=== PATIENT | female | born 1975 | race Caucasian/White ===

== ENCOUNTER 2020-06-20 10:53 | Emergency (ER) | payer MEDICARE, OTHER ==
[2020-06-20] MEDS ORDERED: diazePAM 2 MG TAB PO STA ×2 (11:17→13:17)
[2020-06-20] MEDS ORDERED: KETOROLAC 15 MG/ML 1 ML VIAL IM STA (11:17)
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
--- NOTE | 2020-06-20 12:29 | XR ---
EXAMINATION TYPE: XR sacrum coccyx DATE OF EXAM: 06/20/2020 COMPARISON: NONE HISTORY: Pain Three views are submitted. Sacrum is intact. SI joints are symmetric. Coccyx appears to be intact. Visualized pelvic structures intact. IMPRESSION: 1. No acute fracture.
--- NOTE | 2020-06-20 12:30 | XR ---
EXAM TYPE: LUMBAR SPINE X RAY SERIES COMPARISON: NONE HISTORY: Pain TECHNIQUE: 3 views are submitted. FINDINGS: Alignment is anatomic. The pedicles are intact. The transverse processes are intact. There is hype rtrophic and degenerative change of the spine most marked at L4-5 and L5-S1.. Surgical clips in the right upper quadrant. Facet arthropathy L4-5 and L5-S1. IMPRESSION: 1. Multilevel degenerative disc disease.
--- NOTE | 2020-06-20 12:31 | XR ---
EXAMINATION TYPE: XR thoracic spine complete DATE OF EXAM: 06/20/2020 COMPARISON: NONE HISTORY: Pain TECHNIQUE: 3 views submitted FINDINGS: Alignment is anatomic. There is no compression deformities. Multilevel hypertrophic and degenerative changes. Surgical clips in the right upper quadrant. IMPRESSION: 1. Multilevel degenerative disc disease
[2020-06-20] MEDS ORDERED: HYDROmorphone 0.5 MG/0.5 ML SYRINGE IM STA (12:40)
[2020-06-20 12:54] VITALS: RESP 12
[2020-06-20] MEDS ORDERED: diazePAM 5 MG TAB PO STA (13:17)
[2020-06-20 13:53] VITALS: BP 110/69; PULSE 76; TEMP 98.1
== END 2020-06-20 13:57 | disposition home or self-care (01) ==
LOC: EC 10:53
DX: M62.838 Other muscle spasm (principal); Z88.0 Allergy status to penicillin; Z91.018 Allergy to other foods; M51.36 Other intervertebral disc degeneration, lumbar region
CPT/HCPCS: 72072; 72100; 72220; 99284; 96372 ×2; J1885; J1170

== ENCOUNTER 2020-07-11 19:34 | Emergency (ER) | payer MEDICARE, OTHER ==
[2020-07-11 19:46] VITALS: RESP 18; TEMP 98.4
[2020-07-11] MEDS ORDERED: SODIUM CHLORIDE 0.9% 1,000 ML IV STA (20:00)
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
[2020-07-11 20:23] LABS: Basophils % (A) 0 %; Eosinophils % (A) 1 %; HCT 40.6 % (34.0-46.0); HGB 13.3 gm/dL (11.4-16.0); Lymphocytes # (A) 2.4 k/uL (1.0-4.8); Lymphocytes % (A) 30 %; MCHC 32.9 g/dL (31.0-37.0); MCV 94.3 fL (80.0-100.0); Mean Platelet Volume 6.9; Monocytes # (A) 0.5 k/uL (0-1.0); Monocytes % (A) 6 %; Neutrophils # (A) 4.9 k/uL (1.3-7.7); Neutrophils % (A) 62 %; Platelet Count 317 k/uL (150-450); RDW 12.6 % (11.5-15.5)
[2020-07-11 20:33] LABS: Partial Thromboplastin Time 24.1 sec (22.0-30.0); Prothrombin Time 10.3 sec (9.0-12.0)
[2020-07-11 20:35] LABS: Albumin 4.4 g/dL (3.5-5.0); Calcium 9.4 mg/dL (8.4-10.2); Magnesium 2.1 mg/dL (1.6-2.3); Potassium 3.7 mmol/L (3.5-5.1); Total Bilirubin 0.6 mg/dL (0.2-1.3); Total Protein 6.8 g/dL (6.3-8.2)
--- NOTE | 2020-07-11 20:50 | XR ---
EXAMINATION TYPE: XR chest 2V DATE OF EXAM: 07/11/2020 COMPARISON: NONE HISTORY: Syncope. TECHNIQUE: Frontal and lateral views of the chest are obtained. FINDINGS: There is no focal air space opacity, pleural effusion, or pneumothorax seen. The cardiac silhouette size is within normal limits. The osseous structures are intact. IMPRESSION: No acute cardiopulmonary process.
[2020-07-11 21:53] VITALS: BP 122/70; PULSE 75
== END 2020-07-11 21:53 | disposition home or self-care (01) ==
LOC: EC 19:34
DX: F43.0 Acute stress reaction (principal); R55 Syncope and collapse; F41.9 Anxiety disorder, unspecified; F32.9 Major depressive disorder, single episode, unspecified; K21.9 Gastro-esophageal reflux disease without esophagitis; Z79.899 Other long term (current) drug therapy; Z88.0 Allergy status to penicillin; Z91.018 Allergy to other foods
CPT/HCPCS: 71046; 80053; 83735; 84484; 85025; 85610; 85730; 93005; 96360; 99284